=== PATIENT | male | born 1960 | race Caucasian/White ===

== ENCOUNTER 2017-01-09 09:48 | Observation (INO) | payer OTHER ==
[2017-01-09 09:58] VITALS: RESP 16
[2017-01-09] MEDS ORDERED: ONDANSETRON 4 MG/2 ML VIAL IVP ONE (10:19)
[2017-01-09] MEDS ORDERED: NS 1,000 ML IV ONE ×2 (10:19→11:46)
[2017-01-09] MEDS ORDERED: HYDROmorphONE/DILAUDID 1 MG/ML SYR IVP ONE ×3 (10:19→12:02)
[2017-01-09 10:22] LABS: % IMMATURE GRANULYOCYTES 0.4 % (0.0-1.1); ABSOLUTE IMMATURE GRANULOCYTES 0.04 10^3/uL (0.00-0.10); ADD DIFF? NO; ADD MORPH? NO; ADD SCAN? NO; ATYPICAL LYMPHOCYTE FLAG 0 (0-99); FRAGMENT RBC FLAG 0 (0-99); HEMATOCRIT 53.4 % (40.0-51.0); HEMOGLOBIN 18.7 g/dL (13.7-17.5); LEFT SHIFT FLG 0 (0-99); LIPEMIA HEMOLYSIS FLAG 90 (0-99); MEAN CELL HEMOGLOBIN 28.3 pg (27.9-34.1); MEAN CELL VOLUME 80.8 fL (81.5-99.8); MEAN PLATELET VOLUME 9.8 fL (8.7-11.7); PLATELET CLUMPS FLAG 0 (0-99); PLATELET COUNT 282 10^3/uL (150-400); RED BLOOD CELL COUNT 6.61 10^6/uL (4.40-6.38); RED CELL DISTRIBUTION WIDTH 12.4 % (11.5-15.2)
--- NOTE | 2017-01-09 10:24 | EDPHY ---
H & P Stated Complaint: Abd pain/cramping, nausea, diarrhea;sxs since last night - Personal History Current Tetanus Diphtheria and Acellular Pertussis (TDAP): Yes - Medical/Surgical History Hx Asthma: No Hx Chronic Respiratory Disease: No Hx Diabetes: No Hx Cardiac Disease: No Hx Renal Disease: No Hx Cirrhosis: No Hx Alcoholism: No Hx HIV/AIDS: No Hx Splenectomy or Spleen Trauma: No Other PMH: Sciatica bilat/back surgery 2005 and 2006. numbness persists in rle. MS - Social History Smoking Status: Never smoked Time Seen by Provider: 01/09/17 10:00 HPI/ROS: CHIEF COMPLAINT: Intractable nausea, vomiting, diarrhea HISTORY OF PRESENT ILLNESS: 56-year-old male with medical history significant for multiple sclerosis, chronic back pain, chronic peripheral musculoskeletal pain, complaining of nausea, vomiting, diarrhea since 4:00 p.m. yesterday. No abdominal pain. Saw his neurologist this morning and was referred to the ER for further evaluation. Approximately 5 episodes of vomiting 8-10 episodes of diarrhea. He has been unable to keep down his medications. Non bloody, non purulent. No untreated water sources. No known sick contacts. No fever no chills. No chest pain. No abdominal pain. No urinary abnormality. PRIMARY CARE PROVIDER: Dr. Madeline Melton. Neurologist Dr. Umer Beaulieu. REVIEW OF SYSTEMS: A ten point review of systems was performed and is negative with the exception of the items mentioned in the HPI PAST MEDICAL & SURGICAL HISTORY: Past medical history significant for pulmonary embolus, DVT, chronic warfarin anticoagulation, degenerative disc disease of the cervical and lumbosacral spine, lumbar stenosis, multiple sclerosis, chronic pain syndrome. SOCIAL HISTORY: nonsmoker. No alcohol. PHYSICAL EXAM (Prior to examination, patient consented to physical exam, hands were washed and my usual and customary physical exam procedures followed) 1) GENERAL: Well-developed, well-nourished, alert and oriented. Appears nontoxic. 2) HEAD: Normocephalic, atraumatic 3) HEENT: Pupils equal, round, reactive to light bilaterally. Sclera anicteric. Nasopharynx, oropharynx, clear, no lesions. Dry mucous membrane 4) NECK: Full range of motion, no meningeal signs. 5) LUNGS: Clear auscultation bilaterally, no wheezes, no rhonchi, no retractions. 6) HEART: Regular rate and rhythm, no murmur, no heave, no gallop. 7) ABDOMEN: No guarding, no rebound, no focal tenderness, negative McBurney's, negative Rodriguez's, negative Rovsing's, negative peritoneal sign, I am unable to elicit any abdominal pain on exam 8) MUSCULOSKELETAL: Moving all extremities, no focal areas of tenderness, no obvious trauma. No peripheral edema or discoloration. 9) BACK: No CVA tenderness, no midline vertebral tenderness, no fluctuance, no step-off, no obvious trauma, no visual or palpable abnormality. 10) SKIN: No rash, no petechiae. 11) Psychiatric: Patient is oriented X 3, there is no agitation. DIFFERENTIAL DIAGNOSIS: in no particular include but limited to bowel obstruction, gastroenteritis, acute appendicitis, acute cholecystitis (Bennett,Haylie Brandy) Constitutional: Initial Vital Signs Temperature (C) 36.7 C 01/09/17 09:50 Heart Rate 121 H 01/09/17 09:50 Respiratory Rate 16 01/09/17 09:50 Blood Pressure 113/59 L 01/09/17 09:50 O2 Sat (%) 96 01/09/17 09:50 O2 Delivery Mode Room Air Allergies/Adverse Reactions: Fish Containing Products Allergy (Verified 01/09/17 09:52) Home Medications: Medication Instructions Recorded Dimethyl Fumarate [Tecfidera] 240 mg PO BID 01/09/17 Gabapentin [Neurontin 300 MG (*)] 600 mg PO DAILY PRN 01/09/17 Gabapentin [Neurontin 300 MG (*)] 600 mg PO TID 01/09/17 Nortriptyline HCl [Pamelor 10 mg 10 mg PO HS 01/09/17 (*)] Warfarin Sodium [Coumadin 3MG (*)] 6 mg PO MWF@16 01/09/17 Warfarin Sodium [Coumadin 4MG (*)] 4 mg PO SUTUTHSA@16 01/09/17 oxyCODONE IR [Oxycodone Ir (*)] 15 mg PO Q6HRS 01/09/17 Medical Decision Making ED Course/Re-evaluation: 10:20 a.m.: Most recent progress note was received a fax from his neurologist in this was reviewed by myself as well as old medical records. He is currently tachycardic in the 120s. This may be secondary to acute volume depletion as well as acute opiate withdrawal fall and acute on chronic pain as he has been unable to keep down any of his chronic pain medication. Discussed case Dr. Rojas Spivey in the ER. Will check diagnostic studies, administer IV fluids and analgesia and re-evaluated. 12:01 p.m.: Re-evaluation. He would like to attempt oral fluid challenge. He would like to be discharged if he can keep fluids down. 12:40 p.m.: Re-evaluation. He has attempted oral challenge and has been able to tolerate a single saltine cracker. His abdomen remained soft no guarding no rebound I think that acute surgical abdominal pathology such as acute appendicitis, acute cholecystitis, bowel obstruction, less than likely in this patient at this time. He has been given aggressive hydration as he was noted to be volume depleted. he is concerned, as am I, about his ability to keep his oral medications down at home and whether he can be discharged from the ER. We discussed admission and agreed that admission to the [facility] would be appropriate. Discussed this with Dr. Rojas Spivey in the ER. 12:47 p.m.: Phone consultation with [facility] hospitalist, admit to [facility] Dr. Mauricio (Haylie Guajardo) I did not see this patient while he was in the emergency department. However his care was discussed with the PA while the patient was in the department. I agree with treatment plan and management (Rojas Spivey) - Data Points Laboratory Results: Laboratory Results 01/09/17 10:15 01/09/17 10:15 01/09/17 01/09/17 01/09/17 10:15 10:15 10:15 WBC 11.39 10^3/uL H 10^3/uL (3.80-9.50) RBC 6.61 10^6/uL H 10^6/uL (4.40-6.38) Hgb 18.7 g/dL H g/dL (13.7-17.5) Hct 53.4 % H % (40.0-51.0) MCV 80.8 fL L fL (81.5-99.8) MCH 28.3 pg pg (27.9-34.1) MCHC 35.0 g/dL g/dL (32.4-36.7) RDW 12.4 % % (11.5-15.2) Plt Count 282 10^3/uL 10^3/uL (150-400) MPV 9.8 fL fL (8.7-11.7) Neut % (Auto) 91.5 % H % (39.3-74.2) Lymph % (Auto) 2.6 % L % (15.0-45.0) Teller % (Auto) 5.2 % % (4.5-13.0) Eos % (Auto) 0.1 % L % (0.6-7.6) Baso % (Auto) 0.2 % L % (0.3-1.7) Nucleat RBC Rel Count 0.0 % % (0.0-0.2) Absolute Neuts (auto) 10.43 10^3/uL H 10^3/uL (1.70-6.50) Absolute Lymphs (auto) 0.30 10^3/uL L 10^3/uL (1.00-3.00) Absolute Monos (auto) 0.59 10^3/uL 10^3/uL (0.30-0.80) Absolute Eos (auto) 0.01 10^3/uL L 10^3/uL (0.03-0.40) Absolute Basos (auto) 0.02 10^3/uL 10^3/uL (0.02-0.10) Absolute Nucleated RBC 0.00 10^3/uL 10^3/uL (0-0.01) Immature Gran % 0.4 % % (0.0-1.1) Immature Gran # 0.04 10^3/uL 10^3/uL (0.00-0.10) PT 20.1 SEC H SEC (12.0-15.0) INR 1.71 H (0.83-1.16) APTT 31.2 SEC SEC (23.0-38.0) Sodium 142 mEq/L mEq/L (134-144) Potassium 3.7 mEq/L mEq/L (3.5-5.2) Chloride 105 mEq/L mEq/L (97-110) Carbon Dioxide 23 mEq/l mEq/l (22-31) Anion Gap 14 mEq/L mEq/L (8-16) BUN 14 mg/dL mg/dL (7-23) Creatinine 0.7 mg/dL mg/dL (0.7-1.3) Estimated GFR > 60 Glucose 110 mg/dL H mg/dL (70-100) Calcium 10.1 mg/dL mg/dL (8.5-10.4) Total Bilirubin 1.1 mg/dL mg/dL (0.1-1.4) Conjugated Bilirubin 0.4 mg/dL mg/dL (0.0-0.5) Unconjugated Bilirubin 0.7 mg/dL mg/dL (0.0-1.1) AST 52 IU/L IU/L (17-59) ALT 66 IU/L IU/L (21-72) Alkaline Phosphatase 117 IU/L IU/L (38-126) Total Protein 8.2 g/dL g/dL (6.3-8.2) Albumin 4.9 g/dL g/dL (3.5-5.0) Lipase 141.0 IU/L IU/L (23-300) Microbiology Results: MICROBIOLOGY 01/09/17 10:10 Stool Gastrointestinal Tract Panel (PCR) - Final Norovirus Gi/Gii Medications Given: Discontinued Medications Hydromorphone HCl (Dilaudid) 1 mg IVP EDNOW ONE Stop: 01/09/17 10:20 Last Admin: 01/09/17 10:40 Dose: 1 mg Hydromorphone HCl (Dilaudid) 1 mg IVP EDNOW ONE Stop: 01/09/17 10:49 Last Admin: 01/09/17 10:51 Dose: 1 mg Hydromorphone HCl (Dilaudid) 1 mg IVP EDNOW ONE Stop: 01/09/17 12:03 Last Admin: 01/09/17 12:10 Dose: 1 mg Sodium Chloride (Ns) 1,000 mls @ 0 mls/hr IV ONCE ONE PRN Reason: Wide Open Stop: 01/09/17 10:20 Last Admin: 01/09/17 10:22 Dose: 1,000 mls Sodium Chloride (Ns) 1,000 mls @ 0 mls/hr IV ONCE ONE PRN Reason: Wide Open Stop: 01/09/17 11:47 Last Admin: 01/09/17 11:48 Dose: 1,000 mls Ondansetron HCl (Zofran) 4 mg IVP EDNOW ONE Stop: 01/09/17 10:20 Last Admin: 01/09/17 10:40 Dose: 4 mg Departure - Departure Disposition: [facility] Acute Clinical Impression: History of multiple sclerosis, Norovirus Nausea & vomiting Qualifiers: Vomiting type: unspecified Vomiting Intractability: intractable Qualified Code( s): R11.2 - Nausea with vomiting, unspecified Condition: Fair
[2017-01-09 10:38] LABS: INR 1.71 (0.83-1.16); PROTIME(PATIENT) 20.1 SEC (12.0-15.0)
[2017-01-09 10:39] LABS: APTT 31.2 SEC (23.0-38.0)
[2017-01-09 10:45] LABS: ALANINE AMINOTRANSFERASE 66 IU/L (21-72); ALBUMIN 4.9 g/dL (3.5-5.0); ALKALINE PHOSPHATASE 117 IU/L (38-126); ASPARTATE AMINOTRANSFERASE 52 IU/L (17-59); BILIRUBIN,TOTAL 1.1 mg/dL (0.1-1.4); BILIRUBIN-CONJUGATED 0.4 mg/dL (0.0-0.5); BILIRUBIN-UNCONJUGATED 0.7 mg/dL (0.0-1.1); CALCIUM 10.1 mg/dL (8.5-10.4); CARBON DIOXIDE 23 mEq/l (22-31); CHLORIDE 105 mEq/L (97-110); CREATININE 0.7 mg/dL (0.7-1.3); GLOMERULAR FILTRATION RATE > 60; GLUCOSE 110 mg/dL (70-100); SODIUM 142 mEq/L (134-144); TOTAL PROTEIN 8.2 g/dL (6.3-8.2)
[2017-01-09 10:56] LABS: ANION GAP 14 mEq/L (8-16); POTASSIUM 3.7 mEq/L (3.5-5.2)
[2017-01-09] MEDS ORDERED: GABAPENTIN 300 MG CAP PO PRN (15:04)
[2017-01-09] MEDS ORDERED: fentaNYL 25 MCG PATCH TD SCH (15:30)
[2017-01-09] MEDS ORDERED: WARFARIN SODIUM 3 MG TAB PO SCH (16:00)
[2017-01-09] MEDS: GABAPENTIN 300 MG CAP PO SCH ×2 (16:06→22:46)
[2017-01-09] MEDS ORDERED: HYDROmorphONE/DILAUDID 1 MG/ML SYR IVP PRN (16:12)
[2017-01-09] MEDS ORDERED: ONDANSETRON DISINTEGRATING 4 MG TAB PO PRN (16:12)
[2017-01-09] MEDS ORDERED: ONDANSETRON 4 MG/2 ML VIAL IVP PRN (16:12)
[2017-01-09] MEDS ORDERED: ACETAMINOPHEN 325 MG TAB PO PRN (16:12)
[2017-01-09] MEDS ORDERED: ZOLPIDEM TARTRATE 5 MG TAB PO PRN (16:12)
[2017-01-09] MEDS ORDERED: NS 1,000 ML IV SCH (16:15)
--- NOTE | 2017-01-09 16:22 | PDGENHP ---
History and Physical History and Physical: HISTORY AND PHYSICAL CC:Vomiting and diarrhea HISTORY: this patient's was in his usual state until last evening when he started to have frequent vomiting and diarrhea which persisted through the night. There was some mild cramping abdominal pain it occasionally but no bleeding and no fever symptoms. This morning continued to have vomiting and diarrhea so came into the ER. He was fairly dehydrated and has received fluids in the ER but was still vomiting. Stool studies were done in the ER and he has norovirus per stool studies. The patient has had no recent travel, no meals eaten indicated type setting, and is not aware of any of his friends associates with similar illness. Is not eating any suspicious foods. Has no prior history of bowel disease of any significance no history of recurrent infections or opportunistic infections. Notably he is on Tecfidera for MS. ROS: A comprehensive 10 system review revealed no other significant findings PAST MEDICAL HISTORY: multiple sclerosis diagnosed in 2015 Chronic spine related pain Chronic prescribed narcotic use for his spine pain Pulmonary embolism, on chronic anticoagulation FAMILY MEDICAL HISTORY: no related bowel illnesses or other digestive illnesses in the family SOCIAL HISTORY: lives with his is here at the bedside with him No tobacco alcohol or illicit drugs Dr. Umer Beaulieu is his neurologist Dr. Wan Davis his primary care MEDICATIONS: The patients list has been reconciled by our clinical pharmacist in the EMR. I have reviewed the list and ordered appropriate medicines. 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, no focal weakness IV site: looks normal LABORATORY DATA: INR low at 1.7 which could be due to poor Coumadin intake with his acute illness White blood cell count and hemoglobin both notably elevated possibly reflecting hemoconcentration lymphocytes low at 300 Chemistries unremarkable ASSESSMENT: -acute viral gastroenteritis with norovirus found in stool -immune suppression due to Tecfidera with low lymphocyte count -Acute dehydration -Inability keep his usual medicines down including chronic narcotic -In adequate anticoagulation for his history of pulmonary embolism, likely due to missing Coumadin due to the current illness PLANS: -continue IV hydration, antiemetics, symptomatic treatments otherwise -Will hold his Tecfidera for now -Continue his usual home medicines as able otherwise, replacing important medicines IV as needed -for DVT prophylaxis he is adequately anticoagulated the from standard purposes but if he continues to be unable to keep Coumadin down may need to bridge with some heparin due to his PE history I have reviewed the patient's case in detail with Dr. Rojas Spivey
[2017-01-09] MEDS: oxyCODONE IR 15 MG TAB PO SCH (18:03)
[2017-01-09] MEDS ORDERED: NORTRIPTYLINE HCL 10 MG CAP PO SCH (21:00)
[2017-01-09] MEDS ORDERED: Dimethyl Fumarate [Tecfidera] 240 MG PO SCH (21:00)
[2017-01-10] MEDS: oxyCODONE IR 15 MG TAB PO SCH ×2 (00:49→05:41)
[2017-01-10 07:06] VITALS: BP 110/71; PULSE 76; TEMP 97.5; O2SAT 96
[2017-01-10] MEDS: GABAPENTIN 300 MG CAP PO SCH (10:09)
--- NOTE | 2017-01-10 12:36 | PDDCSUM ---
Discharge Summary Discharge Summary: DISCHARGE DIAGNOSES: -Acute dehydration -Acute gastroenteritis with norovirus infection HOSPITAL COURSE SUMMARY: This paitient came in to the ER severely dehydrated with intractable vomiting and diarrhea from norovirus (stool sample test positive). He was treated with IV fluids and antiemetics. He recovered very well and is now drinking po fluids well. There is no pain or fever or bleeding. He is stable for DC to home. PENDING TEST RESULTS: none MEDICATION CHANGES: prn Zofran ODT FOLLOW-UP PLAN: with skull grinder this coming week
[2017-01-10] MEDS ORDERED: WARFARIN SODIUM 4 MG TAB PO SCH (16:00)
== END 2017-01-10 11:15 | disposition home or self-care (01) ==
LOC: F1N 13:38
PROVIDERS: ADMIT Internal Medicine Pulmonary Disease; ATTEND Internal Medicine
DX: A08.11 Acute gastroenteropathy due to Norwalk agent (principal); E86.0 Dehydration; G35 Multiple sclerosis
CPT/HCPCS: G0378 ×2; 96374; J1170; J2405

== ENCOUNTER → 2017-07-28 | Outpatient (CLI) | payer OTHER | LOC: FIMAGING 06:57 | PROVIDERS: ATTEND Physician Assistant Medical | DX: G35 Multiple sclerosis (principal); M50.322 Other cervical disc degeneration at C5-C6 level ==